=== PATIENT | female | born 1980 | race American Indian/Alaskan Native ===

== ENCOUNTER 2017-05-09 11:14 | Outpatient (CLI) | payer MEDICAID ==
--- NOTE | 2017-05-10 09:41 | Mammography Report ---
Bilateral mammogram: No previous studies available at present for comparison. CAD study utilized. Findings: Heterogeneous breast parenchyma bilaterally. No distinct mass or microcalcification. Benign appearing calcifications right breast. Benign axillary nodes. Impression: Probably benign calcifications right breast. Spot mag is recommended for further evaluation. BI-RADS CATEGORY: 0 = Needs additional imaging evaluation ACR BI-RADS MAMMOGRAPHIC CODES: 0 = Needs additional imaging evaluation; 1 = Negative; 2 = Benign; 3 = Probably benign; 4 = Suspicious; 5 = Malignant; 6 = Known biopsy-proven malignancy COMMENT: 1. Dense breast tissue, i.e., adenosis, fibrocystic changes, etc., may obscure an underlying neoplasm. 2. Approximately 10% of cancers are not detected with mammography. 3. A negative mammography report should not delay biopsy if a clinically suspicious mass is present. COMMENT: Patient follow-up letters are generated in [employer].
== END 2017-05-09 11:15 | disposition home or self-care (01) ==
LOC: MAMMO 11:14
PROVIDERS: ATTEND Family Medicine
DX: Z12.31 Encounter for screening mammogram for malignant neoplasm of breast (principal)
CPT/HCPCS: 77067; G0202

== ENCOUNTER 2017-06-11 08:26 | Outpatient (CLI) | payer MEDICAID ==
--- NOTE | 2017-06-11 11:08 | Mammography Report ---
Right mammogram: Patient recalled for magnification views of right breast calcifications. A loosely grouped collection of rounded calcifications are identified in the lateral right breast which appear to be located centrally in the lateral projection. The magnification views demonstrate a slightly larger accumulation in the CC than in the lateral view suggesting the calcifications may not all lines same plane. No suspicious characteristics are identified and no soft tissue change is noted. These calcifications are not clearly identified on the patient's only prior exam in 2011. Impression: Probably benign bright right breast calcifications. Recommendation: Repeat magnification views in 6 months. BI-RADS CATEGORY: 3 = Probably benign ACR BI-RADS MAMMOGRAPHIC CODES: 0 = Needs additional imaging evaluation; 1 = Negative; 2 = Benign; 3 = Probably benign; 4 = Suspicious; 5 = Malignant; 6 = Known biopsy-proven malignancy COMMENT: 1. Dense breast tissue, i.e., adenosis, fibrocystic changes, etc., may obscure an underlying neoplasm. 2. Approximately 10% of cancers are not detected with mammography. 3. A negative mammography report should not delay biopsy if a clinically suspicious mass is present.
== END 2017-06-11 08:27 | disposition home or self-care (01) ==
LOC: MAMMO 08:26
PROVIDERS: ATTEND Family Medicine
DX: R92.1 Mammographic calcification found on diagnostic imaging of breast (principal)

== ENCOUNTER 2017-11-24 12:49 | Outpatient (CLI) | payer MEDICAID ==
--- NOTE | 2017-11-24 13:57 | Mammography Report ---
Right mammogram: Short-term followup. Magnification CC and lateral imaging is performed of a grouping of calcifications in the superior lateral right breast. Calcifications show no change when compared to comparable images in May 2017. Impression: Stable probably benign calcifications Recommendation: Repeat imaging in 6 months to confirm stability. BI-RADS CATEGORY: 3 = Probably benign ACR BI-RADS MAMMOGRAPHIC CODES: 0 = Needs additional imaging evaluation; 1 = Negative; 2 = Benign; 3 = Probably benign; 4 = Suspicious; 5 = Malignant; 6 = Known biopsy-proven malignancy COMMENT: 1. Dense breast tissue, i.e., adenosis, fibrocystic changes, etc., may obscure an underlying neoplasm. 2. Approximately 10% of cancers are not detected with mammography. 3. A negative mammography report should not delay biopsy if a clinically suspicious mass is present.
== END 2017-11-24 12:50 | disposition home or self-care (01) ==
LOC: MAMMO 12:49
PROVIDERS: ATTEND Family Medicine
DX: R92.8 Other abnormal and inconclusive findings on diagnostic imaging of breast (principal)
CPT/HCPCS: 77066